=== PATIENT | female | born 1970 | race Caucasian/White ===

== ENCOUNTER 2024-06-25 13:59 | Outpatient (CLI) | payer BC, SELFPAY ==
--- NOTE | ~2024-06-25 | XR_ITS ---
XR hip BI wo pelvis Ordering provider: Bella Leavitt, EUGENIO History: . Bilat hip joint pain . Comparison: None. FINDINGS: BONES: No acute fracture or dislocation. HIP JOINT SPACES: Mild bilateral hip osteoarthritic changes with narrowing of the joint space mediall y more on the right side. SACROILIAC JOINT SPACES: The sacroiliac joint spaces are normal. PUBIC SYMPHYSIS: Pubic symphysitis. SOFT TISSUES: Normal. IMPRESSION: No acute osseous abnormality of the bilateral hips and pelvis. Reviewed, dictated and finalized at location A. K FITTER
== END 2024-06-25 14:00 | disposition home or self-care (01) ==
PROVIDERS: PCP Physician Assistant; Visit Provider Physician Assistant
DX: M25.551 Pain in right hip (principal); M25.552 Pain in left hip
CPT/HCPCS: 73521